=== PATIENT | female | born 1960 | race Caucasian/White ===

== ENCOUNTER 2018-11-14 14:04 | Outpatient (CLI) | payer BC ==
[2018-11-14 14:50] LABS: BASOPHILS % (AUTO) 0.3 % (0-1); EOSINOPHILS % (AUTO) 0.1 % (0-6); HEMATOCRIT 42.2 % (35.0-45.0); HEMOGLOBIN 13.9 g/dl (12.0-16.0); LYMPHOCYTES # (AUTO) 0.9 X10'3 (1.1-4.8); LYMPHOCYTES % (AUTO) 18.2 % (21-51); MEAN CORPUSCULAR HEMOGLOBIN 27.6 PG (27.0-31.0); MEAN CORPUSCULAR HGB CONC 32.9 g/dL (33.0-36.5); MEAN CORPUSCULAR VOLUME 83.9 FL (78-98); MEAN PLATELET VOLUME 8.3 FL (7.4-10.4); MONOCYTES # (AUTO) 0.2 X10'3 (0-0.9); MONOCYTES % (AUTO) 3.3 % (2-12); NEUTROPHILS # (AUTO) 3.8 X10'3 (1.8-7.7); NEUTROPHILS % (AUTO) 78.1 % (42-75); PLATELET COUNT 205 X10'3 (140-440); RED BLOOD COUNT 5.03 X10'6 (4.20-5.60); RED CELL DISTRIBUTION WIDTH 13.6 % (11.5-14.5); WHITE BLOOD COUNT 4.9 X10'3 (4.5-11.0)
[2018-11-14 15:00] LABS: ALANINE AMINOTRANSFERASE 27 U/L (12-78); ALBUMIN 3.7 G/DL (3.4-5.0); ALBUMIN/GLOBULIN RATIO 0.9 (1.1-1.5); ALKALINE PHOSPHATASE 70 IU/L (46-116); ANION GAP 12 (8-16); ASPARTATE AMINO TRANSFERASE 22 U/L (10-37); BILIRUBIN,TOTAL 0.2 MG/DL (0.1-1.0); BLOOD UREA NITROGEN 14 MG/DL (7-18); BUN/CREATININE RATIO 19.7 (6.6-38.0); CALCIUM 9.1 MG/DL (8.5-10.1); CHLORIDE 100 MMOL/L (99-107); CREATININE 0.71 MG/DL (0.40-0.90); GLUCOSE 148 MG/DL (70-104); POTASSIUM 3.7 MMOL/L (3.5-5.1); SODIUM 137 MMOL/L (135-145); TOTAL CARBON DIOXIDE 25.4 MMOL/L (24-32); TOTAL PROTEIN 7.9 G/DL (6.4-8.2); eGFR 84 ML/MIN
[2018-11-14 15:02] LABS: D-DIMER 0.44 MG/L FEU (0-0.50)
== END 2018-11-14 23:59 | disposition home or self-care (01) ==
LOC: LAB 14:04
PROVIDERS: ATTEND Family Medicine
DX: J18.9 Pneumonia, unspecified organism (principal); J98.01 Acute bronchospasm; I10 Essential (primary) hypertension; R09.02 Hypoxemia; R06.02 Shortness of breath; Z88.2 Allergy status to sulfonamides
CPT/HCPCS: 36415; 80053; 85025; 85379; 87040

== ENCOUNTER 2025-04-04 20:45 | Emergency (ER) | payer BC, OTHER ==
[~2025-04-04] VITALS: Ht 170.2 cm; Wt 66.3 kg
--- NOTE | 2025-04-04 21:33 | RADIOLOGY REPORT ---
CHEST RADIOGRAPH Indication: CP Technique: Single frontal view of the chest was obtained COMPARISON: None FINDINGS: Lines and Tubes: None. Left anterior chest wall cardiac pacing device. Lungs: Clear Pleura: No effusion. No pneumothorax. Cardiomediastinal contours: Unremarkable Bones: Unremarkable IMPRESSION: 1. No acute disease.
[2025-04-04 21:54] LABS: MEAN PLATELET VOLUME 8.9 FL (7.4-10.4); RED CELL DISTRIBUTION WIDTH 13.5 % (11.5-14.5)
[2025-04-04 22:09] LABS: CREATININE 0.83 MG/DL (0.40-0.90); PRO BRAIN NATRIURETIC PEPTIDE 35 PG/ML (0-125); TOTAL CARBON DIOXIDE 32.6 MMOL/L (24-32); eCRCL 65 ML/MIN; eGFR 69 ML/MIN
--- NOTE | 2025-04-05 00:07 | Physician Documentation ---
History of Present Illness ~ Chief Complaint: Chest Pain Stated Complaint: CHEST PAIN Time Seen by MD: 23:46 Primary Medical Doctor: Community Artist Dr. Bran Mode of Arrival: POV HPI This is a very pleasant 64-year-old female with a known history of hypotension who presents for evaluation of left-sided chest pain that is in both positional and worse when she leans forward, does well as pleuritic, worse with deep inspiration. She describes it as dull achy pressure normally becomes sharp with a deep breath. No obvious trigger provocation. Did not attempt to treat it. Has not experienced this in the past. She was afraid that she was having a heart attack so she decided to come in and get checked out. No concern for tobacco, alcohol or illicit substances exposure Medication Reconciliation Allergies: Coded Allergies: Sulfa (Sulfonamide Antibiotics) (Verified Allergy, Unknown, 04/04/25) Past Medical History Past Medical History: No Pertinent History Past Surgical History: , tonsillectomy, tubal ligation Lives with: Spouse Lives In: Home Review of Systems ROS 10 point review of systems was performed and unless noted above in HPI is negative for acute process/complaint. Physical Exam Vital Signs: Temperature: 97.6, Source: Temporal, Heart Rate: 57, Respiratory Rate: 16, BP: 134/64, Pulse Oximetry: 97, Weight: 66.300 Oxygen Flow Rate: 0 Physical Exam GENERAL: Awake, alert, oriented, GCS 15, no apparent distress, non-toxic appearing, answers questions, follows commands appropriately. Examined in bed 10. HEENT: Atraumatic, normocephalic, pupils equal, extraocular muscles intact, sclerae anicteric, mucus membranes moist, oropharynx is clear, no stridor. NECK: supple, full active range of motion, trachea midline, no thyromegaly, no lymphadenopathy, no JVD. CARDIOVASCULAR: regular rate/rhythm, no murmurs/gallops/rubs, Pulses are 2+ in all extremities and symmetric. Capillary refill less than 2 seconds. PULMONARY: Nonlabored, good air movement ,no respiratory distress, speaking in full sentences, clear to auscultation bilaterally, no wheezing, no ronchi, no rales, no accessory muscle use. GASTROINTESTINAL: Soft, non-tender, non-distended, normal active bowel sounds, no organomegaly, no pulsatile masses, no CVA tenderness. NEUROLOGIC: Lucid with normal mental status. Normal facial symmetry. Moves all extremities symmetrically and with purpose. No truncal ataxia. Speech is fluid without evidence of dysarthria or aphasia, no focal deficits appreciated. MUSCULOSKELETAL: There is full range of motion of all extremities. There is no joint pain or joint swelling or joint erythema. There is no muscle pain or tenderness or swelling. EXTREMITIES: warm, well-perfused, no cyanosis, no clubbing, no edema, no acute deformities. Skin: warm, dry, no rashes or lesions, no jaundice, no petechiae orpurpura. No ecchymosis. PSYCHIATRIC: Normal affect, normal insight, normal concentration. Focused exam: [] Progress Results/Orders Results/Orders Orders - ALEJANDRO OSBORN DO Chest,Single View (04/04/25 21:17) Monitor (04/04/25 21:04) Saline Lock (04/04/25 21:04) Oxygen (04/04/25 21:04) Electrocardiogram (04/04/25 21:04) Hs Troponin I W Calculations (04/04/25 23:04) Hs Troponin I W Calculations (04/05/25 00:04) Completed Orders - ALEJANDRO OSBORN DO Chest,Single View (04/04/25 21:17) Cbc/Diff (04/04/25 21:04) BMP (04/04/25 21:04) PBNP (04/04/25 21:04) Hs Troponin I W Calculations (04/04/25 21:04) D-Dimer (04/05/25 00:03) Vital Signs 04/04/25 04/04/25 04/05/25 04/05/25 20:58 23:58 00:03 01:10 Temp 97.6 97.8 Pulse 57 46 53 Resp 16 16 16 16 B/P (MAP) 134/64 136/95 (109) 153/81 Pulse Ox 97 98 97 O2 Flow Rate 0 0 Laboratory Tests Test 04/04/25 21:34 White Blood Count 6.4 Red Blood Count 4.64 Hemoglobin 13.6 Hematocrit 39.4 Mean Corpuscular Volume 85.0 Mean Corpuscular Hemoglobin 29.3 Mean Corpuscular Hemoglobin Concent 34.5 Red Cell Distribution Width 13.5 Platelet Count 259 Mean Platelet Volume 8.9 Neutrophils (%) (Auto) 56.2 Lymphocytes (%) (Auto) 33.2 Monocytes (%) (Auto) 7.8 Eosinophils (%) (Auto) 2.0 Basophils (%) (Auto) 0.8 Neutrophils # (Auto) 3.6 Lymphocytes # (Auto) 2.1 Monocytes # (Auto) 0.5 Eosinophils # (Auto) 0.1 Basophils # (Auto) 0.1 CBC Comment D-Dimer 0.24 D-Dimer Comment Sodium Level 137 Potassium Level 4.1 Chloride Level 102 Carbon Dioxide Level 32.6 H Anion Gap 2 L Blood Urea Nitrogen 14 Creatinine 0.83 Estimated GFR/1.73 m2 69 BUN/Creatinine Ratio 16.9 Glucose Level 114 H Calcium Level 9.3 Troponin I High Sensitivity 7 Pro-B-Type Natriuretic Peptide 35 Albumin 4.0 Chemistry Comments EKG/XRAY/CT/US/VASC/MRI EKG : Additional Comment EKG was obtained and interpreted by myself showing sinus bradycardia, rate of 57, normal HI interval, borderline QRS of 110, no QT prolongation, normal axis, no STEMI. Medical Decision Making Findings Facility Status: ED Holds, E process The plan was discussed with the patient, who demonstrates clear understanding of the plan and is in agreement with the plan unless otherwise noted in the chart. All questions have been answered, all concerns were addressed unless otherwise documented. I was available throughout their ED stay for frequent reassessment and questions. Differential Diagnoses (considered and possible or likely): [Differential diagnosis considered includes chest wall pain, pleurisy, pneumonia, pulmonary embolus, GERD, esophagitis, gastritis, anxiety, stress reaction, costochondritis, acute coronary syndrome, aortic dissection, pericarditis, myocarditis, or pneumothorax.] ??Differential Diagnoses (considered and unlikely, not requiring evaluation currently): [Aortic/great vessels dissection was considered but it is unlikely based on absence of ripping, tearing, migratory chest pain, absence of syncope or focal neurologic deficits, physical examination indicating equal and symmetric pulses.] MDM Data Please see HPI for the following: Independent Historians and external Records Review. Historian: [Patient] Independent Historians: ?[None] Medication Management: [Reviewed medication list] Social History and determinants: [Reviewed] Please see the body of the note for the following: Any independent interpretations of ECG, imaging studies. All vitals signs/haemodynamics, ordered tests were independently reviewed and interpreted by myself. Nursing triage complaint and vitals reviewed, additional nursing notes were reviewed as available and I agree unless otherwise noted or documented in contradiction in the chart Vital Signs: Independently reviewed Labs: Independently interpreted Imaging: Independently interpreted Old Medical Records: Independently reviewed, see HPI for relevant summary and information Pulse Oximetry: [97%] interpreted as [normal on room air] by me [Licensing Engineer: [Regular Rate, Regular rhythm, no ectopy, NSR] reviewed and interpreted by me] Additionally notably showing: [Hemodynamically stable. Initial workup was unremarkable including negative troponin.] D-dimer is negative. Tests considered but not ordered include: [CTA has been considerably but does not appear to be necessary given negative D-dimer] Social Determinants of Health Impact: Patient was evaluated in [facility] [place] to [facility] due to below par ratio of patient to medical providers. [] Comorbid Conditions Impacting Present Evaluation and Care/Treatment: Hypertension Management Discussions with other Healthcare Providers: [None] Treatment and Disposition Medication Management (Given or considered): []. See EMR for details Consideration for Hospitalization/Escalation/Deescalation of Care: Admission for observation has been considered, [however the patient is able to tolerate p.o., their symptoms are controlled, they are able to rely on oral medications, and their chief complaint/diagnosis can be managed on outpatient basis.] ?ED Course:?[Unfortunately patient was not willing to wait for a 2nd troponin. She chose to leave against medical advice. She was advised that she is always welcome to come back.] ?Shared decision making:?[] Code status:?FULL Please see the full Electronic Medical Record for full details of nursing documentation, medications list, other records of complete past medical history and conditions, vital signs, laboratory studies, and any radiologic study interpretations by radiologists. Portions of this note were completed using [employer] dictation software and as a result there may exist minor errors in spelling. I have reviewed elements of past family and social history and agree as included in note. Departure Disposition: LEFT AGAINST MEDICAL ADVICE Impression: Primary Impression: Chest pain Condition: Improved Referrals: NO PRIMARY CARE PROVIDER (PCP) Signature Scribe Signature: No scribe Attestation: This note accurately reflects clinical decisions, work performed by myself, DO IRENA Marte,ALEJANDRO M DO Apr 05, 2025 00:07
[2025-04-05 01:10] VITALS: BP 153/81; PULSE 53; RESP 16; TEMP 97.8; O2SAT 97
--- NOTE | 2025-04-05 07:03 | ELECTROCARDIOGRAPH REPORT ---
[facility] Test Date: 2025-04-04 Test Time: 20:51:56 Pat Name: LANDRY REYNOLDS Department: EMERGENCY ROOM Room: Gender: F Personnel Generalist Manager: : 1960 Requested By: ALEJANDRO OSBORN Order Number: [id number] Reading MD: Dr. Akbar Yates Measurements Intervals [place] Rate: 57 P: 67 CO: 169 QRS: 85 QRSD: 110 T: 44 QT: 429 QTc: 418 Interpretive Statements Sinus bradycardia Borderline right axis deviation Electronically Signed On 04-05-2025 19:29:[address] Akbar Yates Please click the below link to view image of tracing.
== END 2025-04-05 01:13 | disposition left against medical advice (07) ==
LOC: ER 20:45
DX: R07.89 Other chest pain (principal); Z88.2 Allergy status to sulfonamides; Z98.51 Tubal ligation status; Z90.89 Acquired absence of other organs
CPT/HCPCS: 36415; 71045; 80048; 83880; 84484; 85025; 85379; 93005; 99285